=== PATIENT | male | born 1975 | race Caucasian/White ===

== ENCOUNTER 2022-10-06 08:27 | Day surgery (SDC) | payer OTHER ==
[~2022-10-06 08:27] MED LIST: Lactated Ringers 1,000 ML IV SCH; ceFAZolin 2 GM in Premix Bag 1 BAG IV SCH
[2022-10-06] MEDS ORDERED: Albuterol 0.083% 2.5 MG/3 ML Neb Soln NEB PRN (09:06)
[2022-10-06] MEDS ORDERED: Ondansetron 4 MG/2 ML SDV IVPUSH PRN (09:06)
[2022-10-06] MEDS ORDERED: Morphine 2 MG/ML SYRINGE IVPUSH PRN (09:06)
[2022-10-06] MEDS ORDERED: Naloxone 0.4 MG/ML SDV IVPUSH PRN (09:06)
[2022-10-06] MEDS ORDERED: fentaNYL 50 MCG/ML SDV IVPUSH PRN (09:06)
[2022-10-06] MEDS ORDERED: Metoclopramide 10 MG/2 ML SDV IVPUSH PRN (09:06)
[2022-10-06] MEDS ORDERED: HYDROmorphone 1 MG/ML Syringe IVPUSH PRN (09:06)
[2022-10-06] MEDS ORDERED: Bupivacaine 0.25%/EPINEPHrine 1:200,000 10 ML SDV ONE (09:53)
[2022-10-06] MEDS ORDERED: fentaNYL 100 MCG/2 ML SDV ONE (10:30)
[2022-10-06] MEDS ORDERED: Dexamethasone 4 MG/ML 5 ML MDV ONE (10:30)
[2022-10-06] MEDS ORDERED: Lidocaine 2% 5 ML SDV ONE (10:30)
[2022-10-06] MEDS ORDERED: Propofol 200 MG/20 ML SDV ONE (10:30)
[2022-10-06] MEDS ORDERED: Ondansetron 4 MG/2 ML SDV ONE (10:30)
[2022-10-06] MEDS ORDERED: Dexmedetomidine 200 MCG/2 ML SDV ONE (10:38)
[2022-10-06] MEDS ORDERED: ceFAZolin 2 GM Vial ONE (11:37)
[2022-10-06] MEDS ORDERED: fentaNYL 250 MCG/5 ML SDV ONE (12:01)
[2022-10-06] MEDS ORDERED: Ketorolac 30 MG/ML SDV ONE (12:08)
[2022-10-06 14:27] VITALS: BP 123/78; PULSE 56
== END 2022-10-06 14:05 | disposition home or self-care (01) ==
LOC: MW.SDS 08:27
PROVIDERS: ATTEND Orthopaedic Surgery
DX: S83.242A Other tear of medial meniscus, current injury, left knee, initial encounter (principal); S83.282A Other tear of lateral meniscus, current injury, left knee, initial encounter; I10 Essential (primary) hypertension; F17.210 Nicotine dependence, cigarettes, uncomplicated; Z79.899 Other long term (current) drug therapy; Z98.890 Other specified postprocedural states
CPT/HCPCS: 29880; J0690; J1100; J1885; J2405; J2704; J3010; J3490; J7120